=== PATIENT | female | born 1980 | race Caucasian/White ===

== ENCOUNTER 2017-04-13 15:27 | Emergency (ER) | payer SELFPAY ==
[~2017-04-13] VITALS: Ht 157.5 cm; Wt 63.5 kg
[2017-04-13 15:27] VITALS: BP_SYST 116
[~2017-04-13 15:27] MED LIST: BALANCED SALT IRRIG SOLN 15 ML IO ONE; FLUORESCEIN SODIUM 1 MG OPHTHALMIC STRIP OP ONE; TETRACAINE HCL 0.5% OPHTHALMIC DROPS 15 ML OP ONE
[2017-04-13] MEDS ORDERED: NACL 0.9% 1,000 ML IV ONE ×2 (16:15→18:30)
[2017-04-13] MEDS ORDERED: INSULIN REGULAR, HUMAN 10 UNITS/0.1 ML INJ IVP ONE ×2 (16:15→17:30)
[2017-04-13] MEDS ORDERED: DIPHENHYDRAMINE INJ 50 MG/ML VIAL IVP ONE (17:30)
[2017-04-13] MEDS ORDERED: MORPHINE 4 MG/ML INJ. SYRINGE IVP ONE (17:30)
[2017-04-13 17:41] LABS: BASOPHILS % (AUTO) 0.4 % (0.0-2.0); EOSINOPHILS # (AUTO) 0.3 K/uL (0.0-0.4); EOSINOPHILS % (AUTO) 3.3 % (0.0-4.0); HEMATOCRIT 46.6 % (36-48); HEMOGLOBIN 15.7 g/dL (12.0-16.0); LYMPHOCYTES # (AUTO) 1.8 K/uL (1.0-5.5); LYMPHOCYTES % (AUTO) 22.8 % (20.5-51.5); MEAN CORPUSCULAR HEMOGLOBIN 30 pg (27-31); MEAN CORPUSCULAR HGB CONC 34 % (32-36); MEAN CORPUSCULAR VOLUME 90 fL (79.0-98.0); MONOCYTES # (AUTO) 0.1 K/uL (0.0-1.0); MONOCYTES % (AUTO) 1.9 % (1.7-9.3); NEUTROPHILS # (AUTO) 5.6 K/uL (1.8-7.7); NEUTROPHILS % (AUTO) 71.6 % (40.0-70.0); PLATELET COUNT (AUTO) 328 K/uL (130-430); RED BLOOD CELL COUNT(AUTO) 5.16 MIL/uL (4.2-6.2); RED CELL DISTRIBUTION WIDTH 11.6 % (9.0-15.0); WHITE BLOOD COUNT (AUTO) 7.8 K/uL (4.8-10.8)
[2017-04-13 17:54] LABS: CREATININE 0.8 mg/dL (0.55-1.30); POTASSIUM 3.6 mmol/L (3.5-5.1)
[2017-04-13 17:59] LABS: ALBUMIN 3.1 g/dL (3.4-4.8); TOTAL BILIRUBIN 1.4 mg/dL (0.0-1.0)
[2017-04-13 18:13] LABS: BILIRUBIN,URINE NEGATIVE (NEGATIVE); BLOOD, URINE 2+ (NEGATIVE); CLARITY/URINE SL HAZY (CLEAR); COLOR,URINE YELLOW (YELLOW); GLUCOSE,URINE 3+ (NEGATIVE); KETONES,URINE 1+ (NEGATIVE); LEUKOCYTE ESTERASE ,URINE NEGATIVE (NEGATIVE); NITRITE, URINE POSITIVE (NEGATIVE); PROTEIN URINE NEGATIVE (NEGATIVE); UROBILINOGEN,URINE 0.2 (0.2-1.0)
[2017-04-13 18:32] LABS: BACTERIA,URINE MANY /HPF (None Seen)
[2017-04-13 18:33] LABS: MUCUS,URINE None Seen /LPF (None Seen)
[2017-04-13] MEDS ORDERED: cefTRIAXone 1 GM IVPB PREMIX 50 ML IV ONE ×2 (18:45→19:10)
[2017-04-13 20:11] VITALS: BP_SYST 117
== END 2017-04-13 20:11 | disposition home or self-care (01) ==
LOC: SED 15:27
DX: S05.01XA Injury of conjunctiva and corneal abrasion without foreign body, right eye, initial encounter (principal); N39.0 Urinary tract infection, site not specified; E11.9 Type 2 diabetes mellitus without complications; X58.XXXA Exposure to other specified factors, initial encounter; Y93.89 Activity, other specified; Y92.89 Other specified places as the place of occurrence of the external cause; Y99.8 Other external cause status
CPT/HCPCS: 36415; 71010; 80053; 81000; 81025; 82962; 85025; 87086; 87186; 93005; 96361; 96365; 96375; 96376; 99285; J0696; J1200; J1815; J2270; J7030

== ENCOUNTER 2017-04-16 02:37 | Emergency (ER) | payer MEDICAID ==
[~2017-04-16] VITALS: Ht 157.5 cm; Wt 63.5 kg
[2017-04-16 03:20] VITALS: BP_SYST 134
[2017-04-16] MEDS ORDERED: INSULIN REGULAR, HUMAN 10 UNITS/0.1 ML INJ IVP ONE (04:00)
[2017-04-16 04:16] LABS: BASOPHILS # (AUTO) 0.1 K/uL (0.0-0.2); BASOPHILS % (AUTO) 0.8 % (0.0-2.0); EOSINOPHILS # (AUTO) 0.5 K/uL (0.0-0.4); EOSINOPHILS % (AUTO) 6.3 % (0.0-4.0); HEMATOCRIT 46.2 % (36-48); HEMOGLOBIN 15.4 g/dL (12.0-16.0); LYMPHOCYTES # (AUTO) 2.2 K/uL (1.0-5.5); LYMPHOCYTES % (AUTO) 29.8 % (20.5-51.5); MEAN CORPUSCULAR HEMOGLOBIN 30 pg (27-31); MEAN CORPUSCULAR HGB CONC 33 % (32-36); MEAN CORPUSCULAR VOLUME 91 fL (79.0-98.0); MONOCYTES # (AUTO) 0.5 K/uL (0.0-1.0); MONOCYTES % (AUTO) 6.5 % (1.7-9.3); NEUTROPHILS # (AUTO) 4.1 K/uL (1.8-7.7); NEUTROPHILS % (AUTO) 56.6 % (40.0-70.0); PLATELET COUNT (AUTO) 336 K/uL (130-430); RED BLOOD CELL COUNT(AUTO) 5.08 MIL/uL (4.2-6.2); RED CELL DISTRIBUTION WIDTH 11.6 % (9.0-15.0); WHITE BLOOD COUNT (AUTO) 7.4 K/uL (4.8-10.8)
[2017-04-16 04:27] LABS: POTASSIUM 3.9 mmol/L (3.5-5.1)
[2017-04-16 04:28] LABS: CALCIUM 8.8 mg/dL (8.4-11.0); CREATININE 0.74 mg/dL (0.55-1.30)
[2017-04-16 04:33] LABS: ALBUMIN 3.4 g/dL (3.4-4.8); TOTAL BILIRUBIN 0.8 mg/dL (0.0-1.0); TOTAL PROTEIN, SERUM 7.4 g/dL (6.4-8.3)
[2017-04-16] MEDS ORDERED: TIMOLOL MALEATE 0.5% OPHTHALMIC DROPS 5 ML OP ONE (04:45)
[2017-04-16] MEDS ORDERED: acetaZOLAMIDE 250 MG TABLET (DIAMOX) PO SCH (04:45)
[2017-04-16] MEDS ORDERED: MORPHINE 4 MG/ML INJ. SYRINGE IVP ONE (05:00)
[2017-04-16 05:30] VITALS: BP_SYST 134
== END 2017-04-16 05:30 | disposition short-term general hospital (02) ==
LOC: SED 02:37
DX: E11.39 Type 2 diabetes mellitus with other diabetic ophthalmic complication (principal); H40.2 Primary angle-closure glaucoma; Z79.4 Long term (current) use of insulin
CPT/HCPCS: 36415; 80053; 85025; 96374; 96375; 99291; J1815; J2270

== ENCOUNTER 2018-08-04 20:16 | Emergency (ER) | payer MEDICAID ==
[~2018-08-04] VITALS: Ht 157.5 cm; Wt 63.5 kg
[2018-08-04 20:23] VITALS: BP_SYST 128
[2018-08-04] MEDS ORDERED: MORPHINE 4 MG/ML INJ. SYRINGE IM ONE (21:00)
[2018-08-04 21:49] VITALS: BP_SYST 125
== END 2018-08-04 21:49 | disposition home or self-care (01) ==
LOC: SED 20:16
DX: G43.909 Migraine, unspecified, not intractable, without status migrainosus (principal); E11.9 Type 2 diabetes mellitus without complications
CPT/HCPCS: 81025; 96372; 99283; J2270

== ENCOUNTER 2022-04-09 14:59 | Emergency (ER) | payer MEDICAID ==
[~2022-04-09] VITALS: Ht 157.5 cm; Wt 63.5 kg
[~2022-04-09 14:59] MED LIST changes: -TETRACAINE HCL 0.5% OPHTHALMIC DROPS 15 ML OP ONE; +TETRACAINE HCL/PF 0.5% OPHTHALMIC DROPS 4 ML OP ONE
[2022-04-09 15:16] VITALS: BP_SYST 113
--- NOTE | 2022-04-09 15:19 | NUR ---
Triaged pt and placed in waiting room until bed becomes available. Pt c/o left eye pain, redness, and irritation that started yesterday. No trauma. Rates pain 12/13. NKA. Has hx of DM. Ambulatory with steady gait. No chest pain and no sob. Denies n/v.
--- NOTE | 2022-04-09 20:16 | NUR ---
Patient to ER CHAIR for evaluation.
--- NOTE | 2022-04-09 20:30 | NUR ---
PATIENT BROUGHT IN COMPLAINING OF LEFT EYE DISCOMFORT WITH REDNESS, INCREASED TEARING AND PHOTOPHOBIA X 1 DAY PAIN 04/14
--- NOTE | 2022-04-09 21:54 | NUR ---
DR. ALEJANDRE AT BEDSIDE FOR EXAMINE
--- NOTE | 2022-04-09 22:04 | NUR ---
DR. ALEJANDRE AT BEDSIDE FOR EYE EXAM
[2022-04-09] MEDS ORDERED: MORPHINE SULFATE 10 MG/ML VIAL IM ONE (22:45)
[2022-04-10] MEDS ORDERED: TROPICAMIDE 0.5% OP ONE (00:15)
[2022-04-10] MEDS ORDERED: HYDR-3927 PO (01:52)
[2022-04-10 02:01] VITALS: BP_SYST 122
--- NOTE | 2022-04-10 02:01 | NUR ---
Patient given written and verbal discharge instructions and verbalizes understanding. ER MD discussed with patient the results and treatment provided. Patient in stable condition. ID arm band removed. Rx of NORCO given. Patient educated on pain management and to follow up with PMD. Pain Scale 0/10 Opportunity for questions provided and answered. Medication side effect fact sheet provided.
== END 2022-04-10 02:01 | disposition home or self-care (01) ==
LOC: SED 14:59
DX: H20.9 Unspecified iridocyclitis (principal); H57.12 Ocular pain, left eye; E11.9 Type 2 diabetes mellitus without complications; Z79.899 Other long term (current) drug therapy
CPT/HCPCS: 99283; 96372; J2270

== ENCOUNTER 2022-06-23 09:19 | Emergency (ER) | payer MEDICAID ==
[~2022-06-23] VITALS: Ht 160 cm; Wt 63.5 kg
[~2022-06-23 09:19] MED LIST changes: -BALANCED SALT IRRIG SOLN 15 ML IO ONE; -FLUORESCEIN SODIUM 1 MG OPHTHALMIC STRIP OP ONE; +HYDR-3927 PO; -TETRACAINE HCL/PF 0.5% OPHTHALMIC DROPS 4 ML OP ONE
[2022-06-23 09:36] VITALS: BP_SYST 129
--- NOTE | 2022-06-23 10:03 | NUR ---
DR FRANCISCO IN TRIAGE TO SEE PT.
--- NOTE | 2022-06-23 10:29 | NUR ---
COVID-19 NICHOLAS AND INFLUENZA SWABS OBTAINED, LABELED, AND SENT TO THE LAB.
[2022-06-23] MEDS ORDERED: ALBMDI INH (11:04)
[2022-06-23 11:19] VITALS: BP_SYST 129
--- NOTE | 2022-06-23 11:21 | NUR ---
Patient given written and verbal discharge instructions and verbalizes understanding. ER MD discussed with patient the results and treatment provided. Patient in stable condition. ID arm band removed. Rx of Albuterol given. Patient educated on pain management and to follow up with PMD. Pain Scale 2/10 . Opportunity for questions provided and answered. Medication side effect fact sheet provided.
== END 2022-06-23 11:21 | disposition home or self-care (01) ==
LOC: SED 09:19
DX: J10.1 Influenza due to other identified influenza virus with other respiratory manifestations (principal); R05.9 Cough, unspecified; R50.9 Fever, unspecified; M79.10 Myalgia, unspecified site; E11.9 Type 2 diabetes mellitus without complications; Z79.899 Other long term (current) drug therapy; Z20.822 Contact with and (suspected) exposure to COVID-19
CPT/HCPCS: 36415; 71045; 99284